=== PATIENT | male | born 1995 | race Caucasian/White ===

== ENCOUNTER 2020-07-15 07:53 | Day surgery (SDC) | payer MEDICAID ==
[2020-07-15] MEDS ORDERED: Propofol 200 MG/20 ML SDV ONE (07:56)
[2020-07-15] MEDS ORDERED: Midazolam 1 MG/ML 2 ML SDV ONE (07:56)
[2020-07-15] MEDS ORDERED: fentaNYL 100 MCG/2 ML SDV ONE (07:56)
[2020-07-15] MEDS ORDERED: Sodium Chloride 0.9% 1,000 ML IV SCH (09:15)
--- NOTE | 2020-07-15 12:51 | OR ---
DATE OF PROCEDURE: 07/15/2020 SURGEON: Job Espinoza MD PROCEDURES: 1. Esophagogastroduodenoscopy. 2. Marlow pH monitor placement. COMPLICATIONS: None. BANQUET LEAD: None. ANESTHESIA: MAC. 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 RISKS: Risks, benefits, alternatives, and limitations including, but not limited to infection, bleeding, perforation, false positives, and false negatives were explained to the patient and he wished to proceed. We also discussed dysphagia, problems with the device, and other risks not listed here. PROCEDURE IN DETAIL: The patient was placed in left lateral decubitus position. Esophagogastroduodenoscopy scope was introduced and advanced atraumatically to the second part of the duodenum. No evidence of duodenitis or ulceration. Within the stomach itself, there was no gastritis, no ulceration. The GE junction showed multiple salmon-colored tongue type lesions consistent with reflux/Odonnell esophagus. The top of the gastric folds was measured at 36 cm. The remainder of the esophagus was normal. The device was inserted and set to 30 cm. Suction was applied per standard protocol. The protocol continued with deployment of the device. The suction was held for 30 seconds. The device was deployed. The carrier was removed without incident. The scope was reintroduced, and the device was noted to be in place. The remainder of the esophagus was inspected without abnormality. The patient tolerated the procedure well. Job Espinoza MD /[id number]
== END 2020-07-15 11:10 | disposition home or self-care (01) ==
LOC: JP.SDS 07:53
PROVIDERS: ATTEND Surgery
DX: K21.9 Gastro-esophageal reflux disease without esophagitis (principal); K22.8 Other specified diseases of esophagus
CPT/HCPCS: J2250; J2704; J3010; J7030